=== PATIENT | female | born 2000 | race Caucasian/White ===

== ENCOUNTER 2018-11-17 21:57 | Emergency (ER) | payer OTHER, SELFPAY ==
[2018-11-17 22:36] VITALS: BP 139/85; PULSE 98; RESP 16; TEMP 36.8; O2SAT 100; BMI 19.9
[2018-11-17 23:24] LABS: RBC Urine None Seen (0-5/HPF)
[2018-11-17 23:25] LABS: Bacteria Urine Few (2-10); Mucus Urine 1+ (Negative); Squamous Epithelial Cell Urine 1-5 /HPF; WBC Urine 1-5/HPF (0-5/HPF)
[2018-11-17 23:26] LABS: Culture Indicated Urine Specimen Cultured
--- NOTE | 2018-11-17 23:27 | ED.PSYCH ---
HPI - Psych <Maya Taylor DO - Last Filed: 11/21/18 08:37> General Chief Complaint: Psychiatric Symptoms Stated Complaint: wants psyche eval Time Seen by Provider: 11/17/18 23:15 Source: patient Mode of arrival: ambulatory Limitations: no limitations History of Present Illness HPI Narrative: Patient is a 18-year-old female who presents with suicidal ideations. She has a history of feeling depressed. She says it has been ongoing and getting worse. She is not on any medication for it. She does have a counselor. Last week she had of a specific plan of just driving straight. She had her friends had all of her knives at home because she does not feel like she can be trusted she would really like to cut her wrist. She has no history is of harming herself or suicidal attempt. However she feels like she is not coping with giving herself enough time to deal with things. She has a good group of friends whom support her however they can't be with her at all times. She does not feel that she can be trusted at home alone. She says if she goes home alone she will kill herself. She works 2 jobs MD complaint: suicidal ideation and feels depressed Related Data Home Medications Medication Instructions Recorded Confirmed No Known Home Medications 11/18/18 11/18/18 Allergies Allergy/AdvReac Type Severity Reaction Status Date / Time morphine AdvReac Verified 11/17/18 22:48 Review of Systems <Maya Taylor DO - Last Filed: 11/21/18 08:37> Review of Systems ROS Unobtainable: All systems reviewed & are unremarkable except as noted in HPI and below Constitutional Denies chills, Denies fever(s), Denies lethargy and Denies weakness Cardiovascular Denies chest pain, Denies irregular heart rhythm, Denies lightheadedness, Denies palpitations, Denies dyspnea, Denies dyspnea on exertion and Denies orthopnea Respiratory Denies cough, Denies dyspnea, Denies dyspnea on exertion and Denies wheezing Gastrointestinal Gastrointestinal: Denies abdominal pain, Denies change in bowel habits, Denies diarrhea, Denies nausea and Denies vomiting Musculoskeletal Denies back pain, Denies muscle weakness, Denies numbness and Denies tingling Integumentary/Breasts Denies pruritus, Denies erythema, Denies rash and Denies wounds Neurologic Denies numbness, Denies tingling and Denies weakness Psychiatric Reports anxiety, Reports change in appetite (stopped eating) and Reports hopelessness Endocrine Denies palpitations Allergic/Immunologic Denies wheezing PFSH <Maya Taylor DO - Last Filed: 11/21/18 08:37> Medical History Anxiety (Acute) Depression (Acute) Surgical History History of third molar tooth extraction (08/29/16) Family History Grandfather Age: 79 Diabetes mellitus Hypertension High cholesterol Stroke Grandmother Age: 76 Bladder cancer Diabetes mellitus Hypertension Stroke Grandfather Age: 84 Hypertension High cholesterol Grandmother Age: 76 Hypertension Social History Smoking Status: Never smoker Family History Grandfather Age: 79 Diabetes mellitus Hypertension High cholesterol Stroke Grandmother Age: 76 Bladder cancer Diabetes mellitus Hypertension Stroke Grandfather Age: 84 Hypertension High cholesterol Grandmother Age: 76 Hypertension Social History Smoking Status: Never smoker Exam <Maya Taylor DO - Last Filed: 11/21/18 08:37> Initial Vital Signs Initial Vital Signs: Vital Signs Temperature 98.2 F 11/17/18 22:36 Pulse Rate 98 H 11/17/18 22:36 Respiratory Rate 16 11/17/18 22:36 Blood Pressure 139/85 11/17/18 22:36 Pulse Oximetry 100 11/17/18 22:36 GENERAL: Well-appearing, well-nourished and in no acute distress. HEENT: Hard of hearing wearing hearing aids CARDIOVASCULAR: peripheral pulses in tact, cap refill <2 sec RESPIRATORY: No respiratory distress, speaks in full sentences without difficulty EXTREMITIES: Normal range of motion, no clubbing or edema. Neurovascularly intact NEUROLOGICAL: Cranial nerves II through XII grossly intact. Normal gait and speech. SKIN: Warm, dry, no petechiae, no rashes or lesions. <Tylor Oneal DO - Last Filed: 11/19/18 06:44> Initial Vital Signs Initial Vital Signs: Vital Signs Temperature 98.2 F 11/17/18 22:36 Pulse Rate 98 H 11/17/18 22:36 Respiratory Rate 16 11/17/18 22:36 Blood Pressure 139/85 11/17/18 22:36 Pulse Oximetry 100 11/17/18 22:36 Course <DO Noel Horn Last Filed: 11/21/18 08:37> Orders Ordered: ED Orders 11/17/18 22:55 Urine Culture Stat Urine Drug Screen, Rapid Stat Urine Microscopic Stat 11/17/18 23:33 Complete Blood Count AUTO DIFF Stat Comprehensive Metabolic Panel Stat Ethanol (ETOH) Stat Thyroid Stimulating Hormone Stat 11/18/18 03:23 Consult to Bending Roll Operator Stat Vital Signs - 8 hr 11/18/18 14:47 11/18/18 18:45 Temperature 98.0 F Pulse Rate 96 H 87 Respiratory Rate 18 15 Blood Pressure [Left Arm] 111/65 111/60 Pulse Oximetry 100 98 <Tylor Oneal DO - Last Filed: 11/19/18 06:44> Course Narrative: Patient signed out to me by the nighttime provider. We are awaiting social work evaluation prior to transferring patient to [place] . Patient has been resting comfortably for the course of the day. EMS transport to [place] will be here at 7:30 p.m.. Orders Ordered: ED Orders 11/17/18 22:55 Urine Culture Stat Urine Drug Screen, Rapid Stat Urine Microscopic Stat 11/17/18 23:33 Complete Blood Count AUTO DIFF Stat Comprehensive Metabolic Panel Stat Ethanol (ETOH) Stat Thyroid Stimulating Hormone Stat 11/18/18 03:23 Consult to Bending Roll Operator Stat Vital Signs - 8 hr 11/18/18 14:47 11/18/18 18:45 Temperature 98.0 F Pulse Rate 96 H 87 Respiratory Rate 18 15 Blood Pressure [Left Arm] 111/65 111/60 Pulse Oximetry 100 98 MDM - Psych <Maya Taylor DO - Last Filed: 11/21/18 08:37> Lab Data Attestation: I reviewed the patient's lab results. Result diagrams: 11/17/18 23:33 11/17/18 23:33 Lab Results 11/17/18 11/17/18 11/17/18 Range/Units 22:55 22:55 23:33 WBC 7.9 (4.5-11.0) X10^3/uL RBC 4.39 (4.0-5.2) X10^6/uL Hgb 13.0 (12.0-16.0) g/dL Hct 38.3 (36-46) % MCV 87.3 (80-100) fL MCH 29.6 (26-34) PG MCHC 34.0 (30-36) % RDW 13.1 (11.6-14.8) % Plt Count 219 (150-400) X10^3/uL Neut % (Auto) 44.0 L (50-75) % Lymph % (Auto) 47.1 H (25-40) % [place] % (Auto) 6.3 (3-14) % Eos % (Auto) 2.1 (2-4) % Baso % (Auto) 0.5 (0-2) % Neut # (Auto) 3500 (9533-6625) /uL Lymph # (Auto) 3700 (9011-9809) /uL [place] # (Auto) 500 (0-900) /uL Eos # (Auto) 200 (0-450) /uL Baso # (Auto) 0 (0-100) /uL Sodium (137-145) mmol/L Potassium (3.4-5.1) mmol/L Chloride (98-107) mmol/L Carbon Dioxide (22-32) mmol/L BUN (7-17) mg/dL Creatinine (0.52-1.04) mg/dL Estimated GFR (>60) mL/min BUN/Creatinine Ratio (6-22) Glucose (70-100) mg/dL Calcium (8.4-10.2) mg/dL Total Bilirubin (0.2-1.3) mg/dL AST (14-36) IU/L ALT (9-52) IU/L Alkaline Phosphatase (38-126) U/L Total Protein (6.3-8.2) g/dL Albumin (3.5-5.0) g/dL Globulin (1.7-4.1) g/dL Albumin/Globulin Ratio (1.0-2.8) TSH (0.47-4.68) uIU/mL Urine RBC None seen (0-5/HPF) Urine WBC 1-5/hpf (0-5/HPF) Ur Squamous Epith Cells 1-5 /hpf Urine Bacteria Few (2-10) H (None) Urine Mucus 1+ H (Negative) Ur Culture Indicated? Specimen cultured Micro UA Comment * Urine Opiates Screen Negative (Negative) Ur Oxycodone Screen Negative (Negative) Urine Methadone Screen Negative (Negative) Ur Barbiturates Screen Negative (Negative) U Tricyclic Antidepress Negative (Negative) Ur Phencyclidine Scrn Negative (Negative) Ur Amphetamines Screen Negative (Negative) U Methamphetamines Scrn Negative (Negative) Ur MDMA Scrn (Ecstasy) Negative (Negative) U Benzodiazepines Scrn Negative (Negative) Urine Cocaine Screen Negative (Negative) U Marijuana (THC) Screen Positive H (Negative) Ethyl Alcohol mg/dL 11/17/18 11/17/18 Range/Units 23:33 23:33 WBC (4.5-11.0) X10^3/uL RBC (4.0-5.2) X10^6/uL Hgb (12.0-16.0) g/dL Hct (36-46) % MCV (80-100) fL MCH (26-34) PG MCHC (30-36) % RDW (11.6-14.8) % Plt Count (150-400) X10^3/uL Neut % (Auto) (50-75) % Lymph % (Auto) (25-40) % [place] % (Auto) (3-14) % Eos % (Auto) (2-4) % Baso % (Auto) (0-2) % Neut # (Auto) (3667-1362) /uL Lymph # (Auto) (6242-4810) /uL [place] # (Auto) (0-900) /uL Eos # (Auto) (0-450) /uL Baso # (Auto) (0-100) /uL Sodium 140 (137-145) mmol/L Potassium 3.4 (3.4-5.1) mmol/L Chloride 103 (98-107) mmol/L Carbon Dioxide 26 (22-32) mmol/L BUN 10 (7-17) mg/dL Creatinine 0.60 (0.52-1.04) mg/dL Estimated GFR > 60.0 (>60) mL/min BUN/Creatinine Ratio 16.7 (6-22) Glucose 109 H (70-100) mg/dL Calcium 9.3 (8.4-10.2) mg/dL Total Bilirubin 0.3 (0.2-1.3) mg/dL AST 21 (14-36) IU/L ALT 20 (9-52) IU/L Alkaline Phosphatase 41 (38-126) U/L Total Protein 7.5 (6.3-8.2) g/dL Albumin 4.5 (3.5-5.0) g/dL Globulin 3.0 (1.7-4.1) g/dL Albumin/Globulin Ratio 1.5 (1.0-2.8) TSH 0.63 (0.47-4.68) uIU/mL Urine RBC (0-5/HPF) Urine WBC (0-5/HPF) Ur Squamous Epith Cells Urine Bacteria (None) Urine Mucus (Negative) Ur Culture Indicated? Micro UA Comment Urine Opiates Screen (Negative) Ur Oxycodone Screen (Negative) Urine Methadone Screen (Negative) Ur Barbiturates Screen (Negative) U Tricyclic Antidepress (Negative) Ur Phencyclidine Scrn (Negative) Ur Amphetamines Screen (Negative) U Methamphetamines Scrn (Negative) Ur MDMA Scrn (Ecstasy) (Negative) U Benzodiazepines Scrn (Negative) Urine Cocaine Screen (Negative) U Marijuana (THC) Screen (Negative) Ethyl Alcohol < 10 mg/dL Point of Care Testing Test Results Negative Urine Dip Bedside Urine Glucose Negative Bedside Urine Bilirubin - Negative Bedside Urine Ketone +/- 5 Urine Specific [place] 1.015 Bedside Urine Occult Blood - Negative Bedside Urine pH 8.0 Bedside Urine Protein - Negative Bedside Urine Urobilinogen - Negative Bedside Urine Nitrite - Negative Bedside Urine Leukocytes ++ 125 Esterase MDM Narrative Medical decision making narrative: The patient is not able to contract for safety. She continues to be voluntary. [facility] has accepted her as but awaiting social work evaluation. They are holding a bed. Patient signed out to Dr. Oneal <Tylor Oneal, DO - Last Filed: 11/19/18 06:44> Lab Data Lab Results 11/17/18 11/17/18 11/17/18 Range/Units 22:55 22:55 23:33 WBC 7.9 (4.5-11.0) X10^3/uL RBC 4.39 (4.0-5.2) X10^6/uL Hgb 13.0 (12.0-16.0) g/dL Hct 38.3 (36-46) % MCV 87.3 (80-100) fL MCH 29.6 (26-34) PG MCHC 34.0 (30-36) % RDW 13.1 (11.6-14.8) % Plt Count 219 (150-400) X10^3/uL Neut % (Auto) 44.0 L (50-75) % Lymph % (Auto) 47.1 H (25-40) % [place] % (Auto) 6.3 (3-14) % Eos % (Auto) 2.1 (2-4) % Baso % (Auto) 0.5 (0-2) % Neut # (Auto) 3500 (7078-3425) /uL Lymph # (Auto) 3700 (4464-2755) /uL [place] # (Auto) 500 (0-900) /uL Eos # (Auto) 200 (0-450) /uL Baso # (Auto) 0 (0-100) /uL Sodium (137-145) mmol/L Potassium (3.4-5.1) mmol/L Chloride (98-107) mmol/L Carbon Dioxide (22-32) mmol/L BUN (7-17) mg/dL Creatinine (0.52-1.04) mg/dL Estimated GFR (>60) mL/min BUN/Creatinine Ratio (6-22) Glucose (70-100) mg/dL Calcium (8.4-10.2) mg/dL Total Bilirubin (0.2-1.3) mg/dL AST (14-36) IU/L ALT (9-52) IU/L Alkaline Phosphatase (38-126) U/L Total Protein (6.3-8.2) g/dL Albumin (3.5-5.0) g/dL Globulin (1.7-4.1) g/dL Albumin/Globulin Ratio (1.0-2.8) TSH (0.47-4.68) uIU/mL Urine RBC None seen (0-5/HPF) Urine WBC 1-5/hpf (0-5/HPF) Ur Squamous Epith Cells 1-5 /hpf Urine Bacteria Few (2-10) H (None) Urine Mucus 1+ H (Negative) Ur Culture Indicated? Specimen cultured Micro UA Comment * Urine Opiates Screen Negative (Negative) Ur Oxycodone Screen Negative (Negative) Urine Methadone Screen Negative (Negative) Ur Barbiturates Screen Negative (Negative) U Tricyclic Antidepress Negative (Negative) Ur Phencyclidine Scrn Negative (Negative) Ur Amphetamines Screen Negative (Negative) U Methamphetamines Scrn Negative (Negative) Ur MDMA Scrn (Ecstasy) Negative (Negative) U Benzodiazepines Scrn Negative (Negative) Urine Cocaine Screen Negative (Negative) U Marijuana (THC) Screen Positive H (Negative) Ethyl Alcohol mg/dL 11/17/18 11/17/18 Range/Units 23:33 23:33 WBC (4.5-11.0) X10^3/uL RBC (4.0-5.2) X10^6/uL Hgb (12.0-16.0) g/dL Hct (36-46) % MCV (80-100) fL MCH (26-34) PG MCHC (30-36) % RDW (11.6-14.8) % Plt Count (150-400) X10^3/uL Neut % (Auto) (50-75) % Lymph % (Auto) (25-40) % [place] % (Auto) (3-14) % Eos % (Auto) (2-4) % Baso % (Auto) (0-2) % Neut # (Auto) (6582-2277) /uL Lymph # (Auto) (7155-8749) /uL [place] # (Auto) (0-900) /uL Eos # (Auto) (0-450) /uL Baso # (Auto) (0-100) /uL Sodium 140 (137-145) mmol/L Potassium 3.4 (3.4-5.1) mmol/L Chloride 103 (98-107) mmol/L Carbon Dioxide 26 (22-32) mmol/L BUN 10 (7-17) mg/dL Creatinine 0.60 (0.52-1.04) mg/dL Estimated GFR > 60.0 (>60) mL/min BUN/Creatinine Ratio 16.7 (6-22) Glucose 109 H (70-100) mg/dL Calcium 9.3 (8.4-10.2) mg/dL Total Bilirubin 0.3 (0.2-1.3) mg/dL AST 21 (14-36) IU/L ALT 20 (9-52) IU/L Alkaline Phosphatase 41 (38-126) U/L Total Protein 7.5 (6.3-8.2) g/dL Albumin 4.5 (3.5-5.0) g/dL Globulin 3.0 (1.7-4.1) g/dL Albumin/Globulin Ratio 1.5 (1.0-2.8) TSH 0.63 (0.47-4.68) uIU/mL Urine RBC (0-5/HPF) Urine WBC (0-5/HPF) Ur Squamous Epith Cells Urine Bacteria (None) Urine Mucus (Negative) Ur Culture Indicated? Micro UA Comment Urine Opiates Screen (Negative) Ur Oxycodone Screen (Negative) Urine Methadone Screen (Negative) Ur Barbiturates Screen (Negative) U Tricyclic Antidepress (Negative) Ur Phencyclidine Scrn (Negative) Ur Amphetamines Screen (Negative) U Methamphetamines Scrn (Negative) Ur MDMA Scrn (Ecstasy) (Negative) U Benzodiazepines Scrn (Negative) Urine Cocaine Screen (Negative) U Marijuana (THC) Screen (Negative) Ethyl Alcohol < 10 mg/dL Point of Care Testing Test Results Negative Urine Dip Bedside Urine Glucose Negative Bedside Urine Bilirubin - Negative Bedside Urine Ketone +/- 5 Urine Specific [place] 1.015 Bedside Urine Occult Blood - Negative Bedside Urine pH 8.0 Bedside Urine Protein - Negative Bedside Urine Urobilinogen - Negative Bedside Urine Nitrite - Negative Bedside Urine Leukocytes ++ 125 Esterase Discharge Plan Departure Patient Disposition: Xfer Psychiatric Hosp Clinical Impression: Suicidal ideation Discharge Date/Time: 11/18/18 19:49 Interventions: ED Discharge Assessment Last Done: 11/18/18 19:59
--- NOTE | 2018-11-17 23:34 | ED_ITS ---
HPI - Psych <Maya Taylor DO - Last Filed: 11/21/18 08:37> General Chief Complaint: Psychiatric Symptoms Stated Complaint: wants psyche eval Time Seen by Provider: 11/17/18 23:15 Source: patient Mode of arrival: ambulatory Limitations: no limitations History of Present Illness HPI Narrative: Patient is a 18-year-old female who presents with suicidal ideations. She has a history of feeling depressed. She says it has been ongoing and getting worse. She is not on any medication for it. She does have a counselor. Last week she had of a specific plan of just driving straight. She had her friends had all of her knives at home because she does not feel like she can be trusted she would really like to cut her wrist. She has no history is of harming herself or suicidal attempt. However she feels like she is not coping with giving herself enough time to deal with things. She has a good group of friends whom support her however they can't be with her at all times. She does not feel that she can be trusted at home alone. She says if she goes home alone she will kill herself. She works 2 jobs MD complaint: suicidal ideation and feels depressed Related Data Home Medications Medication Instructions Recorded Confirmed No Known Home Medications 11/18/18 11/18/18 Allergies Allergy/AdvReac Type Severity Reaction Status Date / Time morphine AdvReac Verified 11/17/18 22:48 Review of Systems <Maya Taylor DO - Last Filed: 11/21/18 08:37> Review of Systems ROS Unobtainable: All systems reviewed & are unremarkable except as noted in HPI and below Constitutional Denies chills, Denies fever(s), Denies lethargy and Denies weakness Cardiovascular Denies chest pain, Denies irregular heart rhythm, Denies lightheadedness, Denies palpitations, Denies dyspnea, Denies dyspnea on exertion and Denies orthopnea Respiratory Denies cough, Denies dyspnea, Denies dyspnea on exertion and Denies wheezing Gastrointestinal Gastrointestinal: Denies abdominal pain, Denies change in bowel habits, Denies diarrhea, Denies nausea and Denies vomiting Musculoskeletal Denies back pain, Denies muscle weakness, Denies numbness and Denies tingling Integumentary/Breasts Denies pruritus, Denies erythema, Denies rash and Denies wounds Neurologic Denies numbness, Denies tingling and Denies weakness Psychiatric Reports anxiety, Reports change in appetite (stopped eating) and Reports hopelessness Endocrine Denies palpitations Allergic/Immunologic Denies wheezing PFSH <Maya Taylor DO - Last Filed: 11/21/18 08:37> Medical History Anxiety (Acute) Depression (Acute) Surgical History History of third molar tooth extraction (08/29/16) Family History Grandfather Age: 79 Diabetes mellitus Hypertension High cholesterol Stroke Grandmother Age: 76 Bladder cancer Diabetes mellitus Hypertension Stroke Grandfather Age: 84 Hypertension High cholesterol Grandmother Age: 76 Hypertension Social History Smoking Status: Never smoker Family History Grandfather Age: 79 Diabetes mellitus Hypertension High cholesterol Stroke Grandmother Age: 76 Bladder cancer Diabetes mellitus Hypertension Stroke Grandfather Age: 84 Hypertension High cholesterol Grandmother Age: 76 Hypertension Social History Smoking Status: Never smoker Exam <Maya Taylor DO - Last Filed: 11/21/18 08:37> Initial Vital Signs Initial Vital Signs: Vital Signs Temperature 98.2 F 11/17/18 22:36 Pulse Rate 98 H 11/17/18 22:36 Respiratory Rate 16 11/17/18 22:36 Blood Pressure 139/85 11/17/18 22:36 Pulse Oximetry 100 11/17/18 22:36 GENERAL: Well-appearing, well-nourished and in no acute distress. HEENT: Hard of hearing wearing hearing aids CARDIOVASCULAR: peripheral pulses in tact, cap refill <2 sec RESPIRATORY: No respiratory distress, speaks in full sentences without difficulty EXTREMITIES: Normal range of motion, no clubbing or edema. Neurovascularly intact NEUROLOGICAL: Cranial nerves II through XII grossly intact. Normal gait and speech. SKIN: Warm, dry, no petechiae, no rashes or lesions. <Tylor Oneal DO - Last Filed: 11/19/18 06:44> Initial Vital Signs Initial Vital Signs: Vital Signs Temperature 98.2 F 11/17/18 22:36 Pulse Rate 98 H 11/17/18 22:36 Respiratory Rate 16 11/17/18 22:36 Blood Pressure 139/85 11/17/18 22:36 Pulse Oximetry 100 11/17/18 22:36 Course <DO Noel Horn Last Filed: 11/21/18 08:37> Orders Ordered: ED Orders 11/17/18 22:55 Urine Culture Stat Urine Drug Screen, Rapid Stat Urine Microscopic Stat 11/17/18 23:33 Complete Blood Count AUTO DIFF Stat Comprehensive Metabolic Panel Stat Ethanol (ETOH) Stat Thyroid Stimulating Hormone Stat 11/18/18 03:23 Consult to Gun Stock Maker Stat Vital Signs - 8 hr 11/18/18 14:47 11/18/18 18:45 Temperature 98.0 F Pulse Rate 96 H 87 Respiratory Rate 18 15 Blood Pressure [Left Arm] 111/65 111/60 Pulse Oximetry 100 98 <Tylor Oneal DO - Last Filed: 11/19/18 06:44> Course Narrative: Patient signed out to me by the nighttime provider. We are awaiting social work evaluation prior to transferring patient to [place] . Patient has been resting comfortably for the course of the day. EMS transport to [place] will be here at 7:30 p.m.. Orders Ordered: ED Orders 11/17/18 22:55 Urine Culture Stat Urine Drug Screen, Rapid Stat Urine Microscopic Stat 11/17/18 23:33 Complete Blood Count AUTO DIFF Stat Comprehensive Metabolic Panel Stat Ethanol (ETOH) Stat Thyroid Stimulating Hormone Stat 11/18/18 03:23 Consult to Gun Stock Maker Stat Vital Signs - 8 hr 11/18/18 14:47 11/18/18 18:45 Temperature 98.0 F Pulse Rate 96 H 87 Respiratory Rate 18 15 Blood Pressure [Left Arm] 111/65 111/60 Pulse Oximetry 100 98 MDM - Psych <Maya Taylor DO - Last Filed: 11/21/18 08:37> Lab Data Attestation: I reviewed the patient's lab results. Result diagrams: 11/17/18 23:33 11/17/18 23:33 Lab Results 11/17/18 11/17/18 11/17/18 Range/Units 22:55 22:55 23:33 WBC 7.9 (4.5-11.0) X10^3/uL RBC 4.39 (4.0-5.2) X10^6/uL Hgb 13.0 (12.0-16.0) g/dL Hct 38.3 (36-46) % MCV 87.3 (80-100) fL MCH 29.6 (26-34) PG MCHC 34.0 (30-36) % RDW 13.1 (11.6-14.8) % Plt Count 219 (150-400) X10^3/uL Neut % (Auto) 44.0 L (50-75) % Lymph % (Auto) 47.1 H (25-40) % [place] % (Auto) 6.3 (3-14) % Eos % (Auto) 2.1 (2-4) % Baso % (Auto) 0.5 (0-2) % Neut # (Auto) 3500 (2620-0308) /uL Lymph # (Auto) 3700 (0828-2547) /uL [place] # (Auto) 500 (0-900) /uL Eos # (Auto) 200 (0-450) /uL Baso # (Auto) 0 (0-100) /uL Sodium (137-145) mmol/L Potassium (3.4-5.1) mmol/L Chloride (98-107) mmol/L Carbon Dioxide (22-32) mmol/L BUN (7-17) mg/dL Creatinine (0.52-1.04) mg/dL Estimated GFR (>60) mL/min BUN/Creatinine Ratio (6-22) Glucose (70-100) mg/dL Calcium (8.4-10.2) mg/dL Total Bilirubin (0.2-1.3) mg/dL AST (14-36) IU/L ALT (9-52) IU/L Alkaline Phosphatase (38-126) U/L Total Protein (6.3-8.2) g/dL Albumin (3.5-5.0) g/dL Globulin (1.7-4.1) g/dL Albumin/Globulin Ratio (1.0-2.8) TSH (0.47-4.68) uIU/mL Urine RBC None seen (0-5/HPF) Urine WBC 1-5/hpf (0-5/HPF) Ur Squamous Epith Cells 1-5 /hpf Urine Bacteria Few (2-10) H (None) Urine Mucus 1+ H (Negative) Ur Culture Indicated? Specimen cultured Micro UA Comment * Urine Opiates Screen Negative (Negative) Ur Oxycodone Screen Negative (Negative) Urine Methadone Screen Negative (Negative) Ur Barbiturates Screen Negative (Negative) U Tricyclic Antidepress Negative (Negative) Ur Phencyclidine Scrn Negative (Negative) Ur Amphetamines Screen Negative (Negative) U Methamphetamines Scrn Negative (Negative) Ur MDMA Scrn (Ecstasy) Negative (Negative) U Benzodiazepines Scrn Negative (Negative) Urine Cocaine Screen Negative (Negative) U Marijuana (THC) Screen Positive H (Negative) Ethyl Alcohol mg/dL 11/17/18 11/17/18 Range/Units 23:33 23:33 WBC (4.5-11.0) X10^3/uL RBC (4.0-5.2) X10^6/uL Hgb (12.0-16.0) g/dL Hct (36-46) % MCV (80-100) fL MCH (26-34) PG MCHC (30-36) % RDW (11.6-14.8) % Plt Count (150-400) X10^3/uL Neut % (Auto) (50-75) % Lymph % (Auto) (25-40) % [place] % (Auto) (3-14) % Eos % (Auto) (2-4) % Baso % (Auto) (0-2) % Neut # (Auto) (6882-7329) /uL Lymph # (Auto) (4643-4280) /uL [place] # (Auto) (0-900) /uL Eos # (Auto) (0-450) /uL Baso # (Auto) (0-100) /uL Sodium 140 (137-145) mmol/L Potassium 3.4 (3.4-5.1) mmol/L Chloride 103 (98-107) mmol/L Carbon Dioxide 26 (22-32) mmol/L BUN 10 (7-17) mg/dL Creatinine 0.60 (0.52-1.04) mg/dL Estimated GFR > 60.0 (>60) mL/min BUN/Creatinine Ratio 16.7 (6-22) Glucose 109 H (70-100) mg/dL Calcium 9.3 (8.4-10.2) mg/dL Total Bilirubin 0.3 (0.2-1.3) mg/dL AST 21 (14-36) IU/L ALT 20 (9-52) IU/L Alkaline Phosphatase 41 (38-126) U/L Total Protein 7.5 (6.3-8.2) g/dL Albumin 4.5 (3.5-5.0) g/dL Globulin 3.0 (1.7-4.1) g/dL Albumin/Globulin Ratio 1.5 (1.0-2.8) TSH 0.63 (0.47-4.68) uIU/mL Urine RBC (0-5/HPF) Urine WBC (0-5/HPF) Ur Squamous Epith Cells Urine Bacteria (None) Urine Mucus (Negative) Ur Culture Indicated? Micro UA Comment Urine Opiates Screen (Negative) Ur Oxycodone Screen (Negative) Urine Methadone Screen (Negative) Ur Barbiturates Screen (Negative) U Tricyclic Antidepress (Negative) Ur Phencyclidine Scrn (Negative) Ur Amphetamines Screen (Negative) U Methamphetamines Scrn (Negative) Ur MDMA Scrn (Ecstasy) (Negative) U Benzodiazepines Scrn (Negative) Urine Cocaine Screen (Negative) U Marijuana (THC) Screen (Negative) Ethyl Alcohol < 10 mg/dL Point of Care Testing Test Results Negative Urine Dip Bedside Urine Glucose Negative Bedside Urine Bilirubin - Negative Bedside Urine Ketone +/- 5 Urine Specific [place] 1.015 Bedside Urine Occult Blood - Negative Bedside Urine pH 8.0 Bedside Urine Protein - Negative Bedside Urine Urobilinogen - Negative Bedside Urine Nitrite - Negative Bedside Urine Leukocytes ++ 125 Esterase MDM Narrative Medical decision making narrative: The patient is not able to contract for safety. She continues to be voluntary. [facility] has accepted her as but awaiting social work evaluation. They are holding a bed. Patient signed out to Dr. Oneal <Tylor Oneal, DO - Last Filed: 11/19/18 06:44> Lab Data Lab Results 11/17/18 11/17/18 11/17/18 Range/Units 22:55 22:55 23:33 WBC 7.9 (4.5-11.0) X10^3/uL RBC 4.39 (4.0-5.2) X10^6/uL Hgb 13.0 (12.0-16.0) g/dL Hct 38.3 (36-46) % MCV 87.3 (80-100) fL MCH 29.6 (26-34) PG MCHC 34.0 (30-36) % RDW 13.1 (11.6-14.8) % Plt Count 219 (150-400) X10^3/uL Neut % (Auto) 44.0 L (50-75) % Lymph % (Auto) 47.1 H (25-40) % [place] % (Auto) 6.3 (3-14) % Eos % (Auto) 2.1 (2-4) % Baso % (Auto) 0.5 (0-2) % Neut # (Auto) 3500 (0384-8569) /uL Lymph # (Auto) 3700 (0694-5310) /uL [place] # (Auto) 500 (0-900) /uL Eos # (Auto) 200 (0-450) /uL Baso # (Auto) 0 (0-100) /uL Sodium (137-145) mmol/L Potassium (3.4-5.1) mmol/L Chloride (98-107) mmol/L Carbon Dioxide (22-32) mmol/L BUN (7-17) mg/dL Creatinine (0.52-1.04) mg/dL Estimated GFR (>60) mL/min BUN/Creatinine Ratio (6-22) Glucose (70-100) mg/dL Calcium (8.4-10.2) mg/dL Total Bilirubin (0.2-1.3) mg/dL AST (14-36) IU/L ALT (9-52) IU/L Alkaline Phosphatase (38-126) U/L Total Protein (6.3-8.2) g/dL Albumin (3.5-5.0) g/dL Globulin (1.7-4.1) g/dL Albumin/Globulin Ratio (1.0-2.8) TSH (0.47-4.68) uIU/mL Urine RBC None seen (0-5/HPF) Urine WBC 1-5/hpf (0-5/HPF) Ur Squamous Epith Cells 1-5 /hpf Urine Bacteria Few (2-10) H (None) Urine Mucus 1+ H (Negative) Ur Culture Indicated? Specimen cultured Micro UA Comment * Urine Opiates Screen Negative (Negative) Ur Oxycodone Screen Negative (Negative) Urine Methadone Screen Negative (Negative) Ur Barbiturates Screen Negative (Negative) U Tricyclic Antidepress Negative (Negative) Ur Phencyclidine Scrn Negative (Negative) Ur Amphetamines Screen Negative (Negative) U Methamphetamines Scrn Negative (Negative) Ur MDMA Scrn (Ecstasy) Negative (Negative) U Benzodiazepines Scrn Negative (Negative) Urine Cocaine Screen Negative (Negative) U Marijuana (THC) Screen Positive H (Negative) Ethyl Alcohol mg/dL 11/17/18 11/17/18 Range/Units 23:33 23:33 WBC (4.5-11.0) X10^3/uL RBC (4.0-5.2) X10^6/uL Hgb (12.0-16.0) g/dL Hct (36-46) % MCV (80-100) fL MCH (26-34) PG MCHC (30-36) % RDW (11.6-14.8) % Plt Count (150-400) X10^3/uL Neut % (Auto) (50-75) % Lymph % (Auto) (25-40) % [place] % (Auto) (3-14) % Eos % (Auto) (2-4) % Baso % (Auto) (0-2) % Neut # (Auto) (2736-2639) /uL Lymph # (Auto) (2099-8389) /uL [place] # (Auto) (0-900) /uL Eos # (Auto) (0-450) /uL Baso # (Auto) (0-100) /uL Sodium 140 (137-145) mmol/L Potassium 3.4 (3.4-5.1) mmol/L Chloride 103 (98-107) mmol/L Carbon Dioxide 26 (22-32) mmol/L BUN 10 (7-17) mg/dL Creatinine 0.60 (0.52-1.04) mg/dL Estimated GFR > 60.0 (>60) mL/min BUN/Creatinine Ratio 16.7 (6-22) Glucose 109 H (70-100) mg/dL Calcium 9.3 (8.4-10.2) mg/dL Total Bilirubin 0.3 (0.2-1.3) mg/dL AST 21 (14-36) IU/L ALT 20 (9-52) IU/L Alkaline Phosphatase 41 (38-126) U/L Total Protein 7.5 (6.3-8.2) g/dL Albumin 4.5 (3.5-5.0) g/dL Globulin 3.0 (1.7-4.1) g/dL Albumin/Globulin Ratio 1.5 (1.0-2.8) TSH 0.63 (0.47-4.68) uIU/mL Urine RBC (0-5/HPF) Urine WBC (0-5/HPF) Ur Squamous Epith Cells Urine Bacteria (None) Urine Mucus (Negative) Ur Culture Indicated? Micro UA Comment Urine Opiates Screen (Negative) Ur Oxycodone Screen (Negative) Urine Methadone Screen (Negative) Ur Barbiturates Screen (Negative) U Tricyclic Antidepress (Negative) Ur Phencyclidine Scrn (Negative) Ur Amphetamines Screen (Negative) U Methamphetamines Scrn (Negative) Ur MDMA Scrn (Ecstasy) (Negative) U Benzodiazepines Scrn (Negative) Urine Cocaine Screen (Negative) U Marijuana (THC) Screen (Negative) Ethyl Alcohol < 10 mg/dL Point of Care Testing Test Results Negative Urine Dip Bedside Urine Glucose Negative Bedside Urine Bilirubin - Negative Bedside Urine Ketone +/- 5 Urine Specific [place] 1.015 Bedside Urine Occult Blood - Negative Bedside Urine pH 8.0 Bedside Urine Protein - Negative Bedside Urine Urobilinogen - Negative Bedside Urine Nitrite - Negative Bedside Urine Leukocytes ++ 125 Esterase Discharge Plan Departure Patient Disposition: Xfer Psychiatric Hosp Clinical Impression: Suicidal ideation Discharge Date/Time: 11/18/18 19:49 Interventions: ED Discharge Assessment Last Done: 11/18/18 19:59
[2018-11-17 23:37] LABS: Urine Amphetamines Negative (Negative); Urine Barbiturates Negative (Negative); Urine Benzodiazepines Negative (Negative); Urine Cocaine Negative (Negative); Urine MDMA Negative (Negative); Urine Methadone Negative (Negative); Urine Methamphetamines Negative (Negative); Urine Morphine/Opi cutoff 2000 Negative (Negative); Urine Oxycodone Negative (Negative); Urine Phencyclidine Negative (Negative); Urine THC Positive (Negative); Urine Tricyclic Antidepressant Negative (Negative)
[2018-11-17 23:44] LABS: Add Manual Diff / Slide Review NO; Basophils Absolute Auto 0 /uL (0-100); Basophils Percent Auto 0.5 % (0-2); Eosinophils Absolute Auto 200 /uL (0-450); Eosinophils Percent Auto 2.1 % (2-4); Hematocrit 38.3 % (36-46); Lymphocytes Absolute Auto 3700 /uL (1100-4500); Lymphocytes Percent Auto 47.1 % (25-40); Mean Corpuscular Hemoglobin 29.6 PG (26-34); Mean Corpuscular Volume 87.3 fL (80-100); Monocytes Absolute Auto 500 /uL (0-900); Monocytes Percent Auto 6.3 % (3-14); Neutrophils Absolute Auto 3500 /uL (1500-7000); Platelet Count 219 X10^3/uL (150-400); Red Blood Cell Count 4.39 X10^6/uL (4.0-5.2); Red Cell Distribution Width 13.1 % (11.6-14.8); White Blood Cell Count 7.9 X10^3/uL (4.5-11.0)
[2018-11-17 23:50] LABS: Alanine Aminotransferase 20 IU/L (9-52); Albumin 4.5 g/dL (3.5-5.0); Albumin Globulin Ratio 1.5 (1.0-2.8); Alkaline Phosphatase 41 U/L (38-126); Aspartate Aminotransferase 21 IU/L (14-36); BUN Creatinine Ratio 16.7 (6-22); Bilirubin Total 0.3 mg/dL (0.2-1.3); Blood Urea Nitrogen 10 mg/dL (7-17); Calcium 9.3 mg/dL (8.4-10.2); Carbon Dioxide 26 mmol/L (22-32); Chloride 103 mmol/L (98-107); Estimated Glomerular Filt Rate > 60.0 mL/min (>60); Glucose 109 mg/dL (70-100); HEMOLYSIS < 15 (0-50); Potassium 3.4 mmol/L (3.4-5.1); Sodium 140 mmol/L (137-145); Total Protein 7.5 g/dL (6.3-8.2)
[2018-11-18 00:21] LABS: Ethanol (ETOH) < 10 mg/dL
[2018-11-18 00:26] LABS: Thyroid Stimulating Hormone 0.63 uIU/mL (0.47-4.68)
--- NOTE | 2018-11-18 07:09 | PC.NURSE ---
SWITCH MAKER: Pt is laying in bed, she is sleeping, sitter is outside room.
--- NOTE | 2018-11-18 07:27 | PC.NURSE ---
CRUSHER LOADER EQUIPMENT OPERATOR: Pt is laying on her Left side in bed, calm, quiet and sleeping with sitter outside of room.
[2018-11-18 08:03] VITALS: BP 104/63; PULSE 75; RESP 16; TEMP 36.7; O2SAT 99
--- NOTE | 2018-11-18 08:06 | PC.NURSE ---
pt asleep, I was able to rouse her a little bit by taking her vital signs, she is being monitored with nithya Aburto CNA, actually breakfast just arrived and pt is sitting up and more alert now. VSS, pt safe and appears comfortable, awaiting social work consult for placement.
--- NOTE | 2018-11-18 08:09 | PC.NURSE ---
SUBPOENA SERVER: Pt is sitting in bed, has breakfast, sitter is outside of room.
--- NOTE | 2018-11-18 08:25 | PC.NURSE ---
LIGHT INDUSTRIAL: Pt is quiet and calm, she ate about 50% of her breakfast and is now in the bed with head at about 85 degree angle, offered to put the head down but patient refused. sitter is outside of the room
--- NOTE | 2018-11-18 10:37 | PC.NURSE ---
pt's friend chanel called, I went in to see if she wanted to talk with her. She didn't because it would require her getting out of the bed. Pt has been sleeping since I started taking care of her. She hasn't said much, denies fluids every time I offer them but ate a little bit of her breakfast and nithya Aburto said she had a little bit of water. I took down Chanel's number but told her I couldn't give her any information. Pt stable, safe and unchanged.
--- NOTE | 2018-11-18 10:55 | PC.NURSE ---
VARNISH MELTER HELPER: Pt has been laying in the bed calm, quietly and sleeping. sitter is outside
[2018-11-18 11:05] VITALS: BP 112/68; PULSE 98; RESP 16; TEMP 36.3; O2SAT 100
--- NOTE | 2018-11-18 11:27 | PC.NURSE ---
MARRIAGE AND FAMILY TEACHER; PT is calm and quiet, Yolie is in room with Pt. Sitter is outside of the room.
--- NOTE | 2018-11-18 11:40 | PC.NURSE ---
COMPLAINT SUPERVISOR: pt is sitting in the bed with HOB elevated quiet and calm with all lights off. sitter is outside room. pt has notified that she is Vegan and RN is notified as well.
--- NOTE | 2018-11-18 11:51 | PC.NURSE ---
Molly REGIONAL TRAINING MANAGER in room talking with patient. Lamonte SAENZ asked if I could order her a vegan tray for lunch. Working out discharge to [facility]. Molly to get back with me after she finds out more information. Pt stable and continues being monitored.
--- NOTE | 2018-11-18 12:16 | CM.SWNOTE ---
CONCRETE LABORER Note: Received call from Emergency Department re: 18yr old who came to [facility]. with suicidal ideations. CONCRETE LABORER reviewed progress notes and met with patient explained Social Work role. Patient reports that she is currently feeling like killing myself. Patient not currently under mental health/psychiatric care. Patient taking any current medications expect for daily vitamin and CBD. Patient resides with friend in [facility] in [place], [place]. Patient works (2) jobs and presents appropriate. Patient reports that she has struggled with depression and anxiety for as long as she can remember. Patient's PCP is Rachel Bueno at [facility]. Patient reports that her PCP is aware of her current mental health struggles and referred her to counselor in [place]. Patient has been going to counselor for approximately 1.5yrs. Last visit was last week. Patient instructed by counselor to go to Emergency Department if she continues to have thoughts of harming herself. Recent events that patient associates with current thoughts of harming herself include: break up from boyfriend of 4 months and inability to get emotional support dog. Patient alert and oriented at time of visit. Her appearance is well kept. Patient reports that she is completely I with all ADL's. Patient currently with long nails and reports that she would like to keep them because they prevent her from scratching myself Patient admits to h/o cutting both for pain and pleasure. Patient denies recently cutting and not active scars visible. Patient voluntarily would like to go to inpatient psychiatric treatment for stabilization. CONCRETE LABORER placed call to [facility] this AM. Spoke with Mahi [phone] ext#[phone]. They report that they do have female bed. Faxed clinical and CONCRETE LABORER note to [phone]. P: Hopeful that [facility] can accept today. Patient currently with active suicidal ideations. JACQUELINE Morales
--- NOTE | 2018-11-18 12:32 | PC.NURSE ---
pt continues to sleep, sitting up in the [place] RECONSTRUCTIVE DENTIST reports she ate her lunch that we ordered. Needs met, no changes.
--- NOTE | 2018-11-18 13:27 | PC.NURSE ---
Mom, Marie just called and knows she can't get any information but did give us some information about Nicolasa, She has an appt with her Deaf counselor tomorrow at [facility] Deena Guerrero and also the patient is deaf. Mom wants to make sure she is understanding everything with regards to her disability. apparently pt likes to appear that she understands and then misses information. I got her mom's phone numbers and also asked the patient if she wanted to talk to her mom but she didn't. I left a message with Molly PHILLIPS to call me with regards to this updated information.
--- NOTE | 2018-11-18 14:39 | PC.NURSE ---
RESIDENTIAL GAS HEAT TECHNICIAN: Pt has been sitting/laying in bed with hob elevated, refusing to leave room to go to bathroom or to walk. sitter is outside of room.
[2018-11-18 14:47] VITALS: BP 111/65; PULSE 96; RESP 18; O2SAT 100
--- NOTE | 2018-11-18 14:48 | PC.NURSE ---
I asked the patient about her medications, she said she doesn't take anything, I also let her know I was worried that she hasn't peed yet today. I offered bringing in the commode chair and she said she didn't want that either. I don't want to leave the room without my clothes. VSS.
--- NOTE | 2018-11-18 15:37 | PC.NURSE ---
MARBLE INSTALLER/MAINTENANCE DIRECTOR Note: Introduced myself to patient. Pt denied wanting to use restroom or wanted a snack. Patient did take one sip of her water. Pt. is just laying down resting.
--- NOTE | 2018-11-18 16:32 | PC.NURSE ---
LAND LEASES AND RENTALS MANAGER/INTAKE MANAGER Note: Pt has been sitting/laying in bed with hob elevated, refusing to leave room to go to bathroom or to walk. sitter is outside of room. RN aware.
--- NOTE | 2018-11-18 16:55 | CM.SWNOTE ---
COAL MILL OPERATOR Note continued: Placed call to [facility] re: placement. [facility] reports that patient has been accepted but that they cannot confirm insurance? Per [facility] patient does not have [place]. COAL MILL OPERATOR placed call to [facility] in admissions she reports that she will have someone go speak with patient re: updating insurance. Turns out patient has [employer] Policy# [id number]. Provided updated information to [facility] and JACQUELINE/Leah (coming on ED shift). Per [facility] they will rerun health insurance. If all approved they will accept this evening. Patient expected to go to [facility] is [place]: [address] [place] [address] Martin. Number for nurse to call report is [phone]. This COAL MILL OPERATOR spoke with Leah and updated her on the above. She will call [facility] and take over case. P: Hopeful patient will transfer to [facility] this evening. First, insurance needs to be verified by [facility]. Unsure whom obtains authorization. JACQUELINE Morales
--- NOTE | 2018-11-18 16:59 | PC.NURSE ---
WARP DYEING TENDER/SUGAR TRUCKER Note: Pt has been sitting/laying in bed with hob elevated, refusing to leave room to go to bathroom or to walk. NEIL Calhoun covering my break. RN aware.
--- NOTE | 2018-11-18 17:05 | PC.NURSE ---
Dinner tray brought to patient and she stated that she isn't hungry but I could leave tray for her in room
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
--- NOTE | 2018-11-18 18:27 | PC.NURSE ---
Pt updated on who was called, her friends Chanel and Ken, also that the ambulance is due around 1929. Pt understands and I made sure her needs were met. I gave her some more water. She has had one full 8oz glass.
[2018-11-18 18:45] VITALS: BP 111/60; PULSE 87; RESP 15; TEMP 36.7; O2SAT 98
== END 2018-11-18 19:49 ==
PROVIDERS: Emergency Medicine; Emergency Provider Emergency Medicine
DX: R45.851 Suicidal ideations (principal)
CPT/HCPCS: 36415; 80053; 80305; 80320; 81003; 81015; 81025; 84443; 85025; 87086; 99285; 99291; 99292

== ENCOUNTER 2019-01-07 01:03 | Emergency (ER) | payer OTHER, MEDICAID, SELFPAY ==
[2019-01-07 01:22] VITALS: BP 136/89; PULSE 74; RESP 20; TEMP 36.3; O2SAT 100; BMI 18.3
--- NOTE | 2019-01-07 01:27 | PC.NURSE ---
Pt states Im homeless, where's home
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
[2019-01-07] MEDS: SODIUM CHLORIDE 0.9% 1,000 ML 1000 ML IV (02:02)
[2019-01-07] MEDS: ONDANSETRON 4 MG/2 ML INJ IV (02:02)
[2019-01-07 02:10] LABS: Add Manual Diff / Slide Review NO; Basophils Absolute Auto 0 /uL (0-100); Basophils Percent Auto 0.1 % (0-2); Eosinophils Absolute Auto 0 /uL (0-450); Hematocrit 40.1 % (36-46); Hemoglobin 13.8 g/dL (12.0-16.0); Lymphocytes Absolute Auto 900 /uL (1100-4500); Lymphocytes Percent Auto 11.5 % (25-40); Mean Corpuscular HGB Conc 34.3 % (30-36); Mean Corpuscular Volume 87.4 fL (80-100); Monocytes Absolute Auto 200 /uL (0-900); Neutrophils Absolute Auto 7000 /uL (1500-7000); Neutrophils Percent Auto 85.4 % (50-75); Platelet Count 220 X10^3/uL (150-400); Red Blood Cell Count 4.59 X10^6/uL (4.0-5.2); Red Cell Distribution Width 12.8 % (11.6-14.8); White Blood Cell Count 8.2 X10^3/uL (4.5-11.0)
[2019-01-07 02:19] LABS: Acetaminophen < 10 ug/mL (10-30); Alanine Aminotransferase 15 IU/L (9-52); Albumin Globulin Ratio 1.4 (1.0-2.8); Alkaline Phosphatase 58 U/L (38-126); Aspartate Aminotransferase 24 IU/L (14-36); Bilirubin Total 0.5 mg/dL (0.2-1.3); Blood Urea Nitrogen 11 mg/dL (7-17); Calcium 9.8 mg/dL (8.4-10.2); Carbon Dioxide 27 mmol/L (22-32); Chloride 101 mmol/L (98-107); Estimated Glomerular Filt Rate > 60.0 mL/min (>60); Ethanol (ETOH) < 10 mg/dL; Globulin 3.5 g/dL (1.7-4.1); Glucose 129 mg/dL (70-100); HEMOLYSIS < 15 (0-50); Lipase 27 U/L (23-300); Potassium 3.9 mmol/L (3.4-5.1); Sodium 139 mmol/L (137-145); Total Protein 8.5 g/dL (6.3-8.2)
[2019-01-07 02:20] LABS: Lactate (Lactic Acid) 1.2 mmol/L (0.7-2.1); Salicylate < 1.0 mg/dL (<20)
[2019-01-07 02:25] LABS: Pregnancy Test Serum,Qual Negative (Negative)
[2019-01-07 02:26] LABS: Urine Amphetamines Negative (Negative); Urine Barbiturates Negative (Negative); Urine Benzodiazepines Negative (Negative); Urine Cocaine Negative (Negative); Urine MDMA Negative (Negative); Urine Methadone Negative (Negative); Urine Methamphetamines Negative (Negative); Urine Morphine/Opi cutoff 2000 Negative (Negative); Urine Oxycodone Negative (Negative); Urine Phencyclidine Negative (Negative); Urine Tetrahydrocannabinol Positive (Negative); Urine Tricyclic Antidepressant Negative (Negative)
[2019-01-07 02:38] LABS: RBC Urine None Seen (0-5/HPF); WBC Urine None Seen (0-5/HPF)
[2019-01-07 03:01] VITALS: BP 115/76; PULSE 85; RESP 16; O2SAT 100
[2019-01-07 03:09] LABS: Bacteria Urine Few (2-10); Culture Indicated Urine Cult Not Indicated; Mucus Urine 2+ (Negative); Squamous Epithelial Cell Urine 0-1 /HPF (0-5/HPF)
[2019-01-07] MEDS: ONDANSETRON 4 MG ODT PREPACK 1 BOTTLE MISC (03:22)
== END 2019-01-07 03:28 | disposition home or self-care (01) ==
PROVIDERS: Emergency Provider Emergency Medicine
DX: T50.904A Poisoning by unspecified drugs, medicaments and biological substances, undetermined, initial encounter (principal); R11.10 Vomiting, unspecified
CPT/HCPCS: 36591; 80053; 80305; 80320; 80329; 81003; 81015; 81025; 83605; 83690; 84703; 85025; 96361; 96374; 99283; 99284; G0480; J2405